=== PATIENT | male | born 1960 | race Two or more races ===

== ENCOUNTER → 2019-03-22 | Outpatient (CLI) | payer BC ==
[2019-03-22 13:22] LABS: BASOPHILS % 0.6 % (0.0-2.0); EOSINOPHILS % 4.6 % (0.0-5.0); HEMATOCRIT. 42.9 % (42.0-52.0); HEMOGLOBIN. 14.9 g/dL (14.0-18.0); LYMPHOCYTES % 27.4 % (20.0-50.0); MEAN CORPUSCULAR HEMOGLOBIN 29.4 pg (28.0-32.0); MEAN CORPUSCULAR VOLUME 84.4 fL (80.0-94.0); MEAN PLATELET VOLUME 8.5 fl (7.4-10.4); MONOCYTES % 5.7 % (2.0-8.0); NEUTROPHILS % 61.7 % (40.0-76.0); PLATELET 220 x1000/uL (130-400); RED BLOOD CELL COUNT 5.08 mill/uL (4.7-6.1); RED CELL DISTRIBUTION WIDTH 13.5 % (11.6-14.6)
[2019-03-22 13:27] LABS: CHLORIDE 109 mEq/L (98-107)
[2019-03-22 13:34] LABS: LDL CHOLESTEROL 150 mg/dL (5-100)
[2019-03-22 13:36] LABS: HDL CHOLESTEROL 55 mg/dL (40-59)
[2019-03-22 13:37] LABS: T4 FREE 1.11 ng/dL (0.76-1.46)
== END | disposition home or self-care (01) ==
LOC: LAB 12:25
PROVIDERS: ATTEND Internal Medicine
DX: I10 Essential (primary) hypertension (principal); I49.3 Ventricular premature depolarization; R00.2 Palpitations
CPT/HCPCS: 36415; 80061; 83036; 84439; 84443

== ENCOUNTER → 2023-12-05 | Outpatient (CLI) | payer BC | END | disposition home or self-care (01) | LOC: MRI 09:40 | DX: S43.432A Superior glenoid labrum lesion of left shoulder, initial encounter (principal); M25.812 Other specified joint disorders, left shoulder; X58.XXXA Exposure to other specified factors, initial encounter; Y93.89 Activity, other specified; Y92.89 Other specified places as the place of occurrence of the external cause; Y99.8 Other external cause status | CPT/HCPCS: 73221 ==